=== PATIENT | female | born 1955 | race Caucasian/White ===

== ENCOUNTER → 2016-12-29 | Outpatient (CLI) | payer BC ==
[2016-12-29 07:53] LABS: BASO # 0.1 10*3/uL (0.0-0.1); BASO % 1.2 % (0.0-1.0); EOS # 0.1 10*3/uL (0.0-0.4); EOS % 2.7 % (1.0-4.0); HEMATOCRIT 39.6 % (37.0-47.0); HEMOGLOBIN 13.4 g/dl (12.0-16.0); LYMPH # 1.8 10*3/uL (1.3-4.4); LYMPH % 35.5 % (27.0-41.0); MEAN CELL VOLUME 98.5 fl (81.0-99.0); MEAN CORPUSCULAR HGB 33.3 pg (27.0-31.0); MEAN CORPUSCULAR HGB CONC 33.8 g/dl (33.0-37.0); MONO # 0.3 10*3/uL (0.1-1.0); MONO % 6.4 % (3.0-9.0); NEUT # 2.8 10*3/uL (2.3-7.9); PLATELET COUNT AUTOMATED 289 10*3/uL (130-400); RED BLOOD COUNT 4.02 10*6/uL (4.10-5.10); RED CELL DISTRI WIDTH 12.8 % (0-14.5); WHITE BLOOD COUNT 5.2 10*3/uL (4.8-10.8)
[2016-12-29 08:26] LABS: ALBUMIN 3.5 gm/dl (3.1-4.5); ALKALINE PHOSPHATASE 109 U/L (45-117); BILIRUBIN, TOTAL 0.3 mg/dl (0.2-1.0); BUN 13 mg/dl (7-24); CARBON DIOXIDE 28 mmol/L (21-32); CHLORIDE 107 mmol/L (98-107); CHOLESTEROL 194 mg/dL (<200); EST GLOM FILT AFRICAN AMERICAN > 60 ml/min; GLUCOSE 83 mg/dL (65-99); HDL CHOLESTEROL 111 mg/dl (40-60); LDL CHOLESTEROL 74 mg/dL (9-159); SGOT/AST 37 IU/L (3-35); SGPT/ALT 43 U/L (12-78); SODIUM 144 mmol/L (136-145); TOTAL PROTEIN 6.9 gm/dL (6.4-8.2); TRIGLYCERIDES 44 mg/dl (<150); VLDL CHOLESTEROL 9 mg/dL (6-40)
== END ==
LOC: LAB 07:37 → MAMMO 08:30
PROVIDERS: Nurse Practitioner Family
DX: Z12.31 Encounter for screening mammogram for malignant neoplasm of breast (principal); Z13.220 Encounter for screening for lipoid disorders; Z82.49 Family history of ischemic heart disease and other diseases of the circulatory system

== ENCOUNTER → 2017-01-16 | Outpatient (CLI) | payer BC ==
[2017-01-16 11:28] LABS: BASO # 0.1 10*3/uL (0.0-0.1); BASO % 1.1 % (0.0-1.0); EOS # 0.1 10*3/uL (0.0-0.4); EOS % 2.5 % (1.0-4.0); HEMATOCRIT 39.6 % (37.0-47.0); HEMOGLOBIN 13.2 g/dl (12.0-16.0); LYMPH # 1.9 10*3/uL (1.3-4.4); LYMPH % 33.6 % (27.0-41.0); MEAN CORPUSCULAR HGB 33.3 pg (27.0-31.0); MEAN CORPUSCULAR HGB CONC 33.3 g/dl (33.0-37.0); MEAN PLATELET VOLUME 8.8 fl (9.6-12.3); MONO # 0.3 10*3/uL (0.1-1.0); MONO % 6.1 % (3.0-9.0); NEUT # 3.2 10*3/uL (2.3-7.9); NEUT % 56.5 % (47.0-73.0); PLATELET COUNT AUTOMATED 304 10*3/uL (130-400); RED BLOOD COUNT 3.96 10*6/uL (4.10-5.10); RED CELL DISTRI WIDTH 12.6 % (0-14.5); WHITE BLOOD COUNT 5.6 10*3/uL (4.8-10.8)
[2017-01-16 11:53] LABS: IRON 98 ug/dL (50-170); IRON SATURATION 30 %; UIBC 219 ug/dL (110-365)
[2017-01-16 12:50] LABS: PTH INTACT 72.8 pg/mL (14.0-72.0); VITAMIN D, 25-HYDROXY 17.8 ng/mL (30-100)
== END ==
LOC: LAB 11:10
PROVIDERS: Nurse Practitioner Family
DX: E83.51 Hypocalcemia (principal); R71.8 Other abnormality of red blood cells

== ENCOUNTER → 2018-06-27 | Outpatient (CLI) | payer OTHER | END | disposition home or self-care (01) | LOC: MAMMO 09:57 | DX: Z12.31 Encounter for screening mammogram for malignant neoplasm of breast (principal); R92.8 Other abnormal and inconclusive findings on diagnostic imaging of breast ==

== ENCOUNTER → 2023-07-31 | Outpatient (CLI) | payer OTHER | END | disposition home or self-care (01) | LOC: RAD 08:32 | PROVIDERS: ATTEND Nurse Practitioner Family | DX: Z12.31 Encounter for screening mammogram for malignant neoplasm of breast (principal); Z00.00 Encounter for general adult medical examination without abnormal findings; Z13.1 Encounter for screening for diabetes mellitus; Z13.220 Encounter for screening for lipoid disorders; R05.8 Other specified cough; R07.89 Other chest pain ==